=== PATIENT | female | born 1980 | race African-American/Black ===

== ENCOUNTER 2019-10-04 12:31 | Emergency (ER) | payer OTHER, SELFPAY ==
[2019-10-04] MEDS ORDERED: Oseltamivir 75 MG CAP ONE (13:36)
== END 2019-10-04 13:45 | disposition home or self-care (01) ==
LOC: MADERS 12:31
DX: J10.1 Influenza due to other identified influenza virus with other respiratory manifestations (principal)
CPT/HCPCS: 87804; 99283

== ENCOUNTER 2022-10-19 22:04 | Emergency (ER) | payer OTHER, SELFPAY | END 2022-10-19 23:36 | disposition home or self-care (01) | LOC: MADERS 22:04 | DX: B34.9 Viral infection, unspecified (principal); Z20.822 Contact with and (suspected) exposure to COVID-19 | CPT/HCPCS: 87081; 87430; 87804; 99283; U0003; U0005 ==

== ENCOUNTER 2023-05-02 08:08 | Emergency (ER) | payer OTHER | END 2023-05-02 10:12 | disposition home or self-care (01) | LOC: MADERS 08:08 | DX: J06.9 Acute upper respiratory infection, unspecified (principal) | CPT/HCPCS: 87081; 87430; 87804; 99283 ==

== ENCOUNTER 2025-08-10 19:55 | Emergency (ER) | payer OTHER | END 2025-08-10 21:53 | disposition home or self-care (01) | LOC: MADERS 19:55 | DX: R50.9 Fever, unspecified (principal) | CPT/HCPCS: 71046; 87428 ==